=== PATIENT | male | born 1940 | race Caucasian/White ===

== ENCOUNTER → 2017-02-11 | Outpatient (CLI) | payer OTHER, MEDICARE ==
[~2017-02-11] MED LIST: AMLO-114 PO; ASPCH81 PO; ATOR-22 PO; ATOR-24 PO; GLC500 PO; METO1TAB71 PO; PANT40TA PO; SYN150 PO; TRAM-10 PO
--- NOTE | 2017-02-11 13:47 | DIAGNOSTIC IMAGING REPORT ---
LEFT TIBIA/FIBULA 2 VIEWS CLINICAL HISTORY: LOW BACK AND LEFT LOWER LEG PAIN pain COMPARISON: None. DISCUSSION: The bones and joint spaces appear intact. There is no evidence of fracture, dislocation or bony disease. There is no evidence for soft tissue swelling. IMPRESSION: Negative study. Electronically signed by: Cr Wharton M.D. 02/11/2017 1:46 PM Dictated Date/Time: 02/11/2017 1:46 PM
--- NOTE | 2017-02-11 13:50 | DIAGNOSTIC IMAGING REPORT ---
LUMBAR SPINE 5 VIEWS HISTORY: Pain LOW BACK AND LEFT LOWER LEG PAIN COMPARISON: None. FINDINGS: Degenerative and postoperative change throughout the entire lumbar region. Considerable loss of joint space appears at all levels of lumbar region. Findings consistent with posterior laminectomy and fusion from L2 through L5. No evidence for an acute compression deformity. IMPRESSION: Considerable degenerative and postoperative change. No evidence for compression deformity. Scoliosis. Electronically signed by: Cr Wharton M.D. 02/11/2017 1:49 PM Dictated Date/Time: 02/11/2017 1:47 PM
--- NOTE | 2017-02-11 13:55 | DIAGNOSTIC IMAGING REPORT ---
LEFT ANKLE 3 VIEWS CLINICAL HISTORY: Left leg pain. FINDINGS: 3 views of left ankle are obtained. No prior studies are available for comparison at the time of dictation. The skeletal structures are osteopenic. No fracture is seen. The ankle mortise is intact. No large joint effusion is seen. Soft tissue edema is present within the calf and around the ankle joint. Atherosclerotic calcification is noted in the regional arteries. IMPRESSION: Soft tissue swelling with no acute bony abnormality seen in the left ankle. Electronically signed by: Juarez Wahl M.D. 02/11/2017 1:54 PM Dictated Date/Time: 02/11/2017 1:53 PM
== END | disposition home or self-care (01) ==
LOC: C.RDSM 12:16
PROVIDERS: ATTEND Physician Assistant
DX: M79.662 Pain in left lower leg (principal); M25.572 Pain in left ankle and joints of left foot; M47.816 Spondylosis without myelopathy or radiculopathy, lumbar region; M41.9 Scoliosis, unspecified; Z98.1 Arthrodesis status

== ENCOUNTER → 2017-10-13 | Outpatient (CLI) | payer OTHER, MEDICARE ==
[~2017-10-13] MED LIST changes: -METO1TAB71 PO; +METO200T32 PO
--- NOTE | 2017-10-13 16:38 | DIAGNOSTIC IMAGING REPORT ---
RIGHT KNEE RADIOGRAPHS WITH COMPARISON STANDING AP RADIOGRAPH OF THE LEFT KNEE CLINICAL HISTORY: Right anterior knee pain following fall. COMPARISON: None FINDINGS: Comparison standing AP radiograph of the left knee demonstrates mild medial compartment joint space narrowing. There is extensive vascular calcification. There are surgical clips likely from previous lower extremity bypass grafting within the right leg. There is a small right knee joint effusion. No fracture is visualized. Severe medial compartment joint space narrowing of the right knee is noted. There is moderate osteophytosis within the medial and patellofemoral compartments of the right knee. IMPRESSION: 1. No acute fracture. 2. Small right knee joint effusion. 3. 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 4. Extensive vascular calcification. Electronically signed by: Catalino Huertas M.D. 10/13/2017 4:37 PM Dictated Date/Time: 10/13/2017 4:35 PM
== END | disposition home or self-care (01) ==
LOC: C.RDSM 03:48
PROVIDERS: ATTEND Physician Assistant
DX: S89.90XA Unspecified injury of unspecified lower leg, initial encounter (principal); X58.XXXA Exposure to other specified factors, initial encounter